=== PATIENT | female | born 1980 | race Caucasian/White ===

== ENCOUNTER 2019-10-06 14:40 | Observation (INO) ==
--- NOTE | 2019-10-05 16:45 | History & Physical Report ---
Date of Service October 05, 2019 Assessment & Plan (1) Abscess of bursa, right wrist: She has fairly severe swelling, pain, stiffness, and numbness in her volar forearm, wrist, and hand. The epicenter of this seems to be at the volar aspect of her wrist. I am very concerned that she has an abscess in the volar wrist compartment that is compressing the median nerve and causing her numbness and pain with passive extension. This has been progressively worsening over the past 2 months. She has not had any advanced imaging yet despite her worsening symptoms. I am concerned enough that I think we should go ahead and post her for surgical debridement of the likely abscess in her volar wrist. We will see if we can get a stat MRI done today for further evaluation and preoperative planning. Risks, benefits, and alternatives of surgery were explained in detail. The surgical procedure, as well as postoperative recovery and rehabilitation, was also explained in detail. Risks include bleeding; infection; damage to surrounding structures such as nerves, blood vessels, and tendons that run in the area; persistent pain, numbness, weakness, or stiffness; or need for further surgery. She understands all of this and wishes to proceed with surgery. Preoperative workup was completed today, and informed consent was obtained. Addendum: Unfortunately, the MRI was denied by her insurance company so far, and it will take 48 hours to approve. I again think that her presentation is conc erning enough that we should go ahead with surgical intervention despite the lack of advanced imaging. Present on Admission?: Yes History of Present Illness Chief Complaint: Right wrist pain and swelling Ms. Villa is a 39-year-old acdxu-tisu-fzhzzyzl female who is been having pain and swelling in her right volar wrist. This originally started in July 2019 when she slept wrong and developed pain at the base of her thumb. She had a steroid injection in July into what sounds like the thumb basal joint. She developed a lump in the volar aspect of her wrist after that injection. It has been progressively enlarging and been progressively more painful since July. It has now worsened to the point where she has a lot of stiffness in her hand. This stiffness started about last week. Over this past weekend, she also developed redness coming up the volar forearm. She has also noticed numbness in her fingers. She went to her primary care physician, who was concerned about cellulitis and started her on Keflex yesterday afternoon. She has not noticed significant change with this yet. She also notes that an MRI was ordered in the past, but this was denied by her insurance company. Physical Exam Physical Exam: General: The patient appears well developed and well nourished. Awake, alert, and oriented x 3. Appropriate mood and affect. Normal gait and station. Normal coordination and balance. Skin: The skin over the right volar wrist and forearm shows relatively mild erythema extending from the volar wrist mass proximally up the forearm. Inspection/Palpation: Visual inspection reveals significant swelling and tenderness to palpation over the distal aspect of the volar wrist. This is very full and feels like it could be consistent with an abscess measuring almost 5 cm in diameter. Range of Motion: There is very limited range of motion of the wrist and hand due to pain. She has significant pain with passive extension of her wrist and fingers. Stability: There is no gross ligamentous laxity. Strength: There is significant limitation in strength due to pain. Sensation: The patient reports significant numbness in the median nerve distribution. Vascular: Hand is warm and well perfused. Results & Data Diagnostic Findings New x-rays of the right wrist were obtained today. They are largely unremarkable. Soft tissue windowing shows a large amount of swelling on the volar side of the wrist, but no obvious discrete fluid collections. No osseous erosions to indicate a chronic osteomyelitis. No significant arthritis.
[~2019-10-06 14:40] MED LIST: CEFAZOLIN 2000MG 2,000 MG/15 ML SYR IV SCH; PATIENT'S ALLERGY INFO NEEDS ENTERED SCH; PATIENT'S HEIGHT AND/OR WEIGHT NEEDED SCH
[2019-10-06 16:00] LABS: Basophils # (auto) 0.01 K/uL (0-0.2); Basophils % (auto) 0.2 %; Eosinophils # (auto) 0.06 K/uL (0-0.5); Hematocrit (blood only) 39.7 % (37-47); Hemoglobin 13.1 g/dL (12.0-16.0); Immature Granulocytes # (auto) 0.01 K/uL (0.00-0.02); Immature Granulocytes % (auto) 0.2 %; Lymphocytes # (auto) 1.31 K/uL (1.2-3.4); Mean Corpuscular Hemoglobin 31.3 pg (25-34); Mean Platelet Volume 9.3 fL (7.4-10.4); Monocytes # (auto) 0.55 K/uL (0.11-0.59); Monocytes % (auto) 8.8 %; Neutrophils # (auto) 4.31 K/uL (1.4-6.5); Neutrophils % (auto) 68.8 %; Platelet Count 209 K/uL (130-400); RDW Coefficient of Variation 13.4 % (11.5-14.5); RDW Standard Deviation 46.8 fL (36.4-46.3); Red Blood Count 4.18 M/uL (4.2-5.4); White Blood Count 6.25 K/uL (4.8-10.8)
--- NOTE | 2019-10-06 16:38 | History & Physical Bridge Note ---
Date of Service October 06, 2019 History & Physical Bridge Note I have examined the patient, reviewed the History & Physical and in the interval since the performance of the History & Physical I have noted the following changes of clinical significance: no changes noted
[2019-10-06] MEDS ORDERED: BACITRACIN INJ 50,000 UNIT VIAL ONE (16:42)
--- NOTE | 2019-10-06 17:00 | Anesthesiology Consultation ---
Date of Service October 06, 2019 Assessment & Plan Chart Review Chart Review: Acceptable Risk for Surgery and Patient NOT seen in Pre Admission Testing Consults Requested none ASA ASA1 Proposed Anesthesia Anesthesia Type: General Risk / Benefits Reviewed With: PT / POA / Parent / Guardian, Accepts Plan and Informed Consent Obtained History Surgery Operation Date: 10/06/19 07:00 Proposed Procedures p Right Wrist Incision and Drainage - Bruce Ge M.D. Height/Weight Height: 5 ft 10 in Weight: 83.121 kg Allergies Allergy/AdvReac Type Severity Reaction Status Date / Time No Known Allergies Allergy Unverified 10/06/19 15:24 Medications Home Medications Medication Instructions Recorded Confirmed Last Taken bupropion HCl [Wellbutrin XL] 150 mg PO QAM 10/06/19 10/06/19 10/05/19 08:00 ergocalciferol (vitamin D2) 1,250 mcg PO WK 10/06/19 10/06/19 09/26/19 08:00 [Vitamin D2] folic acid mg PO DAILY 10/06/19 10/05/19 08:00 [id number]-bw-[id number]-Ca carb-vit K 1 tab PO DAILY 10/06/19 10/06/19 10/05/19 08:00 [Women's Multivitamin] NPO Date Last Intake of Fluids: 10/06/19 Time Last Intake of Fluids: 00:01 Date Last Intake of Solids: 10/05/19 Time Last Intake of Solids: 19:00 Exercise / Class Metabolic Activity II 4-5 Yardwork/Stairs/Walk up hill Past Anesthesia History No Hx of Anesthesia Complications and No Family Hx of Anesthesia Complications History of PONV No Hx of Motion Sickness and History of PONV Social History Smoking Status: Never smoker Hx Alcohol Use: No Hx Substance Use: No Physical Exam Vital Signs Last Vital Signs Temp 36.8 C 10/06/19 15:13 Pulse 72 10/06/19 15:13 Resp 16 10/06/19 15:13 BP 124/64 10/06/19 15:13 Pulse Ox 100 10/06/19 15:13 Constitutional not obese ENMT Mouth: no dentition abnormality Thyromental Distance: < 3.5 Finger Breadths Mallampati Class: II Neck normal visual inspection and trachea midline; neck extension not limited Respiratory normal respiratory effort Auscultation: lungs clear to auscultation bilaterally Cardiovascular Rate/Rhythm: regular rate and regular rhythm Heart Sounds: no murmur Musculoskeletal Spine: normal cervical ROM Extremities: extremities normal to inspection Neurologic moves all extremities Motor/Sensory: no sensory deficit Psychiatric Orientation: alert and oriented x 3 Testing Laboratory Results 10/06/19 15:51
[2019-10-06] MEDS ORDERED: CEFAZOLIN 2,000 MG/15 ML IV PUSH IV ONE (17:01)
[2019-10-06] MEDS ORDERED: SCOPOLAMINE 1.5 MG TDSY ONE (17:01)
[2019-10-06] MEDS ORDERED: SCOPOLAMINE 1.5 MG TDSY TD ONE (17:05)
[2019-10-06] MEDS ORDERED: MIDAZOLAM HCL 1 MG/ML 2ML VIAL ONE (17:09)
[2019-10-06] MEDS ORDERED: LIDOCAINE HCL 2% 2 ML VIAL/AMP(20MG/ML) INFIL ONE (17:09)
[2019-10-06] MEDS ORDERED: fentaNYL citrate 100 MCG/2 ML VIAL ONE ×3 (17:09→19:39)
[2019-10-06] MEDS ORDERED: ONDANSETRON INJ 2 MG/ML 2 ML VIAL ONE ×2 (17:09→19:31)
[2019-10-06] MEDS ORDERED: DEXAMETHASONE SOD INJ 4 MG/ML VIAL ONE (17:09)
[2019-10-06] MEDS ORDERED: PROPOFOL IV EMULSION 10 MG/ML 20 ML VIAL IV ONE (17:09)
[2019-10-06] MEDS ORDERED: LACTATED RINGER'S 1,000 ML IV SCH (17:15)
[2019-10-06 17:31] LABS: Appearance Urine Clear (Clear); Bilirubin Urine Negative (Negative); Blood Urine Negative (Negative); Color Urine Yellow; Glucose Urine UA Negative (Negative); Ketones Urine 1+ (Negative); Leukocyte Esterase Urine Negative (Negative); Nitrite Urine Negative (Negative); Protein Urine Negative (Negative); Urobilinogen Urine Negative (Negative); pH Urine 6.5 (4.5-7.5)
[2019-10-06] MEDS ORDERED: HYDROmorphone INJ 2 MG/ML SYR/VIAL ONE (17:55)
--- NOTE | 2019-10-06 19:29 | Post Operative Brief Note ---
Immediate Post Op Note v1 Date of Surgery October 06, 2019 Pre & Post Diagnosis Operation Date: 10/06/19 07:00 Pre-Op Diagnosis: Abscess of bursa, right wrist Post-Op Diagnosis: Right wrist flexor pollicis longus tenosynovitis, acute carpal tunnel syndrome I identified the patient and participated in the time-out.: Yes Procedure Operation Date: 10/06/19 07:00 Actual Procedures p Right Wrist Incision and Debridement, Flexor Pollicis Longus and Carpal Tunnel Release(Right) - Bruce Ge M.D. Surgeon Bruce Ge Liquid Waste Treatment Plant Operator None Estimated Blood Loss 15 Findings Consistent with Post-Op Diagnosis
[2019-10-06] MEDS ORDERED: FLUMAZENIL 0.1 MG/1 ML 10 ML VIAL IV PRN (19:31)
[2019-10-06] MEDS ORDERED: ATROPINE SULFATE 0.1 MG/ML 10ML SYR IV PRN (19:31)
[2019-10-06] MEDS ORDERED: ePHEDrine sulfate 50 MG/ML AMP IV PRN (19:31)
[2019-10-06] MEDS ORDERED: ONDANSETRON INJ 2 MG/ML 2 ML VIAL IV PRN ×2 (19:31→20:08)
[2019-10-06] MEDS ORDERED: KETOROLAC 30 MG/ML VIAL IV PRN (19:31)
[2019-10-06] MEDS ORDERED: PROMETHAZINE HCL 12.5 MG in SODIUM CHLORIDE 0.9% 50 ML IV PRN (19:31)
[2019-10-06] MEDS ORDERED: NALOXONE HCL 0.4 MG/1 ML VIAL/CARP IV PRN ×2 (19:31→20:08)
--- NOTE | 2019-10-06 19:32 | Operative Report ---
Post Operative Report Pre & Post Diagnosis Operation Date: 10/06/19 07:00 Pre-Op Diagnosis: Right wrist volar abscess, acute carpal tunnel syndrome Post-Op Diagnosis: Right wrist and thumb flexor pollicis longus infectious tenosynovitis, acute carpal tunnel syndrome I identified the patient and participated in the time-out.: Yes Procedure Operation Date: 10/06/19 07:00 Actual Procedures Irrigation and debridement of right wrist and thumb flexor pollicis longus infectious tenosynovitis (29632), open Carpal Tunnel Release (14289) - Bruce Ge M.D. Surgeon Bruce Ge Senior Ecologist None Estimated Blood Loss 15 Findings Consistent with Post-Op Diagnosis Specimens Culture swabs x 2, tissue for culture Drains None Anesthesia Type General Complications none Disposition Disposition: Recovery Room Indications Ms. Villa is a 39-year-old female who is been having progressively worsening pain and swelling in her right volar wrist after she got an injection in her sophia mb about 2 months ago. Unfortunately, her insurance company denied multiple requests for MRI for further evaluation, and she continued to worsen. History and clinical exam were consistent with the above diagnosis. Risks, benefits, and alternatives of surgery were explained in detail. The patient understood all this and wished to proceed. Description of Procedure Patient was identified in the preoperative holding area. Operative extremity was marked. Patient was then brought back to the operating room, and general anesthesia was induced without complication. Appropriate weight-based dose of Ancef was infused intravenously for antibiotic prophylaxis. Tourniquet was placed on the right upper arm. Arm was then prepped and draped in a standard sterile fashion using Chlorhexidine prep. The arm was then exsanguinated by elevation only, and the tourniquet was inflated. I planned for an extensile carpal tunnel release with the volar wrist incision. Again, the epicenter of the swelling appeared to be in the volar wrist just proximal to the wrist crease. I also planned for an open carpal tunnel release due to her acute carpal tunnel syndrome prior to surgery. I made the carpal tunnel incision and then carried this across the wrist crease in a Dara type fashion, and then extended along the course of the FCR tendon in the distal forearm. The superficial and deep portions of the FCR tendon sheath were opened longitudinally. I began encountering a lot of of reactive tissue and serous fluid. Parona space was entered, but no purulence was found there. I then got a sanchez of purulent fluid when I opened the flexor pollicis longus tendon sheath. There was abundant reactive synovial tissue around the FPL tendon. It was clearly the FPL tendon sheath that was the epicenter of infection, as there is a copious amount of pus within the tendon sheath. Culture swabs were obtained. I also sent a tissue specimen for culture that consisted of the reactive synovial tissue around the FPL. I then continued to carefully debride the chronic reactive synovial tissue off of the FPL proximally and distally. Since there was clearly pus within the FPL tendon sheath, I decided to open the FPL sheath distally over the A1 temitope. I performed this in a Dara type incision in case I had to extend this more distally. Ulnar and radial neurovascular bundles were identified and protected. I again encountered reactive inflammatory tissue directly over the FPL tendon sheath and A1 temitope. I then opened the A1 temitope longitudinally, and again got a sanchez of purulent fluid. The A2 temitope was carefully protected. I released the FPL tendon sheath as far proximal as I could reach underneath the thenar musculature. I then c opiously irrigated the wrist wound with sterile saline via gravity irrigation, as well as the FPL tendon sheath with a syringe and 14-gauge Angiocath. I was able to irrigate the FPL tendon sheath all the way distally to the tip of the thumb; I was able to easily palpate the irrigation fluid within the tip of the thumb and felt that I therefore did not need to open over the volar aspect of the IP joint. I was able to flush fluid through the FPL tendon sheath proximally into the wrist wound. At this point I then continued with the carpal tunnel release due to her preoperative acute carpal tunnel syndrome. The superficial palmar fascia and transverse carpal ligament were sharply divided directly over the carpal tunnel and median nerve. I continued the release of the fascia all the way through the volar wrist crease to the forearm wound. The palmar cutaneous branch was identified and protected. I then explored some of the other flexor tendons and remaining structures within the wrist to ensure that there is no other pockets of infection. The FDS and FDP tendons were opened; no further pus was found. The wounds were again copiously irrigated with sterile saline; a total of 6 L of saline were irrigated through the wounds. Tourniquet was let down and hemostasis was achieved with bipolar electrocautery. Subcutaneous tissue was closed with 3-0 Vicryl, and skin was closed with 4-0 Prolene. Sterile dressings were then applied with Xeroform, sterile gauze, sterile Webril, and Colby wrap. The drapes were removed, the patient was awakened from anesthesia, and taken to the Post Anesthesia Care Unit in stable condition. There were no immediate complications from the procedure. I was present and scrubbed for the entire procedure. I attest to the content of the Intraoperative Record and any orders documented therein. Any exceptions are noted below.
[2019-10-06] MEDS: fentaNYL citrate 100 MCG/2 ML VIAL IV PRN ×4 (19:40→19:55)
[2019-10-06] MEDS ORDERED: MAGNESIUM HYDROXIDE SUSP 30 ML UDC PO PRN (20:08)
[2019-10-06] MEDS ORDERED: bisacodyL 10 MG SUPP PR PRN (20:08)
[2019-10-06] MEDS ORDERED: METOCLOPRAMIDE HCL INJ 5 MG/ML 2 ML VIAL IV PRN (20:08)
[2019-10-06] MEDS ORDERED: OXYCODONE HCL IR 5 MG TAB (IMMEDIATE RELEASE) PO PRN (20:08)
[2019-10-06] MEDS ORDERED: SODIUM CHLORIDE 0.9% 1000ML 1,000 ML IV SCH (20:15)
[2019-10-06] MEDS ORDERED: MoRPHine SULFATE 4 MG/ML 1 ML CARP\\VIAL IV PRN (20:16)
--- NOTE | 2019-10-06 20:19 | Anesthesiology Progress Note ---
Date of Service October 06, 2019 Anesthesia Post Procedure Vital Signs Vital Signs: Temp Pulse Pulse Resp BP Pulse Ox 10/06/19 20:10 36.6 C 81 16 133/80 94 10/06/19 20:00 98 H 18 157/86 H 98 10/06/19 19:50 77 15 145/79 H 92 10/06/19 19:40 102 H 14 165/86 H 96 10/06/19 19:30 36.4 C L 110 H 14 155/92 H 97 10/06/19 15:13 36.8 C 72 16 124/64 100 Pain Intensity Right Wrist: Pain Intensity: 10 Transfer of Care Handoff Completed per policy Notes Mental Status: alert / awake / arousable Patient Amnestic to Procedure: Yes Nausea / Vomiting: adequately controlled Pain: adequately controlled Airway Patency, RR, SpO2: stable & adequate BP & HR: stable & adequate Hydration State: stable & adequate Anesthetic Complications: no major complications apparent
[2019-10-06] MEDS ORDERED: SENNA 8.6 MG TAB PO SCH (21:00)
[2019-10-06] MEDS: DOCUSATE SODIUM 100 MG CAP PO SCH (21:04)
[2019-10-06] MEDS: ACETAMINOPHEN 500 MG TAB PO SCH (22:45)
[2019-10-06] MEDS: CEFAZOLIN 2000MG 2,000 MG/15 ML SYR IV SCH (23:34)
[2019-10-06] MEDS: IBUPROFEN 600 MG TAB PO SCH (23:34)
[2019-10-06] MEDS: CHECK SCOPOLAMINE PATCH PLACEMENT SCH (23:34)
[2019-10-07] MEDS: ACETAMINOPHEN 500 MG TAB PO SCH ×2 (03:51→10:07)
[2019-10-07] MEDS: IBUPROFEN 600 MG TAB PO SCH ×2 (05:50→11:44)
[2019-10-07] MEDS: CEFAZOLIN 2000MG 2,000 MG/15 ML SYR IV SCH (07:58)
[2019-10-07] MEDS: CHECK SCOPOLAMINE PATCH PLACEMENT SCH (07:58)
[2019-10-07] MEDS: DOCUSATE SODIUM 100 MG CAP PO SCH (07:58)
--- NOTE | 2019-10-07 08:25 | Anesthesiology Progress Note ---
Date of Service October 07, 2019 Anesthesia Post Procedure Vital Signs Vital Signs: Temp Pulse Pulse Resp BP Pulse Ox 10/07/19 07:50 36.8 C 55 L 18 120/66 100 10/07/19 03:47 36.6 C 60 16 115/67 100 10/06/19 23:35 36.6 C 59 L 16 120/71 100 10/06/19 22:35 36.4 C L 70 18 117/74 99 10/06/19 21:35 36.6 C 70 18 115/72 99 10/06/19 21:05 36.5 C 70 16 131/81 99 10/06/19 20:35 36.9 C 90 16 150/85 H 99 10/06/19 20:25 73 16 140/79 100 10/06/19 20:10 36.6 C 81 16 133/80 94 10/06/19 20:00 98 H 18 157/86 H 98 10/06/19 19:50 77 15 145/79 H 92 10/06/19 19:40 102 H 14 165/86 H 96 10/06/19 19:30 36.4 C L 110 H 14 155/92 H 97 10/06/19 15:13 36.8 C 72 16 124/64 100 Pain Intensity Right Wrist: Pain Intensity: 10 Notes Mental Status: alert / awake / arousable and participated in evaluation Patient Amnestic to Procedure: Yes Nausea / Vomiting: adequately controlled Pain: adequately controlled Airway Patency, RR, SpO2: stable & adequate BP & HR: stable & adequate Hydration State: stable & adequate Anesthetic Complications: no major complications apparent and Pt Satisfied with anesthetic care
--- NOTE | 2019-10-07 12:40 | Orthopedic Progress Note ---
Date of Service October 07, 2019 Assessment & Plan (1) Abscess of bursa, right wrist: POD 1 Pain controlled today. Nausea resolved. Progressing well. Discussed case with Dr Ge. Plan for dc to home. Subjective POD 1 s/p right wrist I/D Pt sitting up in bed. Pleasant. Pain controlled. No nausea. Hoping to go home. No new complaints. Physical Exam Physical Exam: Dressings/splint C/D/I. Cap refll < 2 seconds. Moving fingers well. No overt pain with ROM. Results & Data Vital Signs (Past 12 Hours) Vital Signs Temp Pulse Resp BP Pulse Ox 10/07/19 07:50 36.8 C 55 L 18 120/66 100 10/07/19 03:47 36.6 C 60 16 115/67 100
--- NOTE | 2019-10-10 17:00 | Discharge Summary ---
Date of Service October 10, 2019 Admission HPI Per Admitting Provider Ms. Villa is a 39-year-old wgjne-kpnh-cgnmikik female who is been having pain and swelling in her right volar wrist. This originally started in July 2019 when she slept wrong and developed pain at the base of her thumb. She had a steroid injection in July into what sounds like the thumb basal joint. She developed a lump in the volar aspect of her wrist after that injection. It has been progressively enlarging and been progressively more painful since July. It has now worsened to the point where she has a lot of stiffness in her hand. This stiffness started about last week. Over this past weekend, she also developed redness coming up the volar forearm. She has also noticed numbness in her fingers. She went to her primary care physician, who was concerned about cellulitis and started her on Keflex yesterday afternoon. She has not noticed significant change with this yet. She also notes that an MRI was ordered in the past, but this was denied by her insurance company. Principal Diagnosis Right wrist and thumb flexor pollicis longus infectious tenosynovitis, acute carpal tunnel syndrome Discharge Data Allergies Allergy/AdvReac Type Severity Reaction Status Date / Time No Known Allergies Allergy Unverified 10/06/19 15:24 Consultations 10/06/19 20:10 Consult Case Management - Discharge Planning Routine Procedures Performed Operation Date: 10/06/19 07:00 Actual Procedures p Right Wrist Incision and Debridement, Flexor Pollicis Longus and (Right) - Bruce Ge M.D. s Carpal Tunnel Release(Right) - Bruce Ge M.D. Hospital Course (1) Abscess of bursa, right wrist: Ms. Villa is a 39-year-old female who had 2 months of worsening right volar wrist pain and thumb pain after a previous steroid injection in her primary care provider's office. Clinical exam in my clinic was consistent with infection and abscess, but unfortunately a preoperative MRI for localization was denied by her insurance. She was taken to the operating room on October 06 for irrigation and debridement surgery, and was found to have pus within the FPL tendon sheath. In the recovery room after surgery, she had significant pain, nausea, and vomiting, and did not feel comfortable going home that evening. She was admitted overnight for observation. The following morning, her pain and nausea was much better controlled, and she was therefore discharged home. Total Time Total Time Spent Total Time Spent (In Minutes): 10 Discharge Plan Discharge Items Patient Disposition: Home - Self-Care Reason For Visit: Right Wrist Abscess Discharge Diagnosis: Right wrist and thumb FPL infectious flexor tenosynovitis, acute carpal tunnel syndrome Activity: Per Instructions section Non-emergency contact: Surgeon Call non-emergency contact if: your pain is not controlled, your temperature is above 101.5, your wound has increased redness and your wound has increased drainage Follow-up/Referrals: Bruce Ge M.D. [Physician] - Bin Cortez PA-C [Primary Care Provider] - Addtl Attending Provider Instructions: RESUME YOUR KEFLEX THAT YOU HAVE AT HOME STARTING TONIGHT. Things to Watch Out For -Nausea and sometimes vomiting is common side effect of anesthesia. Go easy with eating for the first day after your surgery. Drink non-carbonated fluids like Gatorade or water. Eat bland foods such as crackers. If these things go down easily, you may progress to more normal foods. -Go to the Emergency Room if you have sudden onset of chest pain, shortness of breath, or uncontrollable pain. -Call the clinic immediately if you have a sudden increase in the amount of wound drainage or the drainage becomes thick, yellow or green, or foul-smelling. -For routine questions, call the clinic at [phone] during regular business hours (8am-5pm). For urgent issues after regular business hours, you may call the clinic to be connected to the on-call physician. Dressings -Keep your dressings clean, dry, and in place for 4 days. After 4 days, you may remove the dressing and cover the incision with a new clean dressing. Be sure to wash your hands thoroughly before touching your incisions. Apply a new dressing daily thereafter. -You may begin showering after your first dressing change (4 days after surgery). You may let the water run BRIEFLY over the incision, but do not soak the incision in the bathtub or pool for 2 weeks. You may also gently clean the incision with mild soap and water; pat the incision dry after cleaning-do not rub the incision. -You may use an antibiotic ointment (Bacitracin, Polysporin) if desired, but this is not necessary. Sling/Activity -Keep your hand elevated and move your fingers frequently to reduce swelling. -You may wear a sling if needed for comfort, but come out of the sling 4-5 times a day for active range of motion exercises for your shoulder and elbow. Pain Medicines -You have been prescribed an anti-inflammatory (Motrin/ibuprofen) and a non- narcotic pain medicine (Tylenol/acetaminophen). These are your primary pain medications. Take them each every 6 hours as instructed. It is recommended that you stagger these medicines every 3 hours (i.e. take ibuprofen at 8:00 am, then acetaminophen at 11:00 am, then ibuprofen at 2:00 pm, etc). -DO NOT take any additional anti-inflammatories (Advil, Aleve/naproxen, Mobic/meloxicam, Celebrex) or any additional Tylenol/acetaminophen products with these prescribed medications. -You have also been prescribed an additional narcotic pain medication (oxycodone/tramadol). Take this medicine ONLY for breakthrough pain not controlled by the ibuprofen and acetaminophen. -Do not drive or operate heavy machinery while taking the narcotic medication. -Common side effects of narcotic pain medicines include itching, nausea, constipation, and feeling ``loopy. However, if you develop a rash or hives, stop taking the medicine and call the clinic. If you develop swelling in your throat or difficulty breathing, go to the Emergency Room or call 911 IMMEDIATELY. -You may take over the counter stool softeners if needed for constipation. Pending Studies at Discharge: No Stand-Alone Forms: My [facility] [address] Medications and DC Order Prescriptions: Continued bupropion HCl [Wellbutrin XL] 150 mg Tablet Extended Release 24 Hr 150 mg PO QAM RF: 0 folic acid 800 mcg Tablet PO DAILY RF: 0 Women's Multivitamin 18 mg iron-400 mcg-500 mg Tablet 1 tab PO DAILY RF: 0 ergocalciferol (vitamin D2) [Vitamin D2] 1,250 mcg (50,000 unit) Capsule 1,250 mcg PO WK RF: 0 Discharge Orders: Discharge Order (Routine); Ordered 10/06/19 Ordered By: Bruce Ge Admission Data Admit Date/Time: 10/06/19 20:08 Attending Provider: Bruce Ge Admit Provider: Bruce Ge Primary Care Provider: Bin Cortez Other Interventions: Discharge Summary Assessment (RN) Last Done: 10/07/19 13:13 DC Date/Time DO NOT enter until pt leaves facility: 10/07/19 13:35
== END 2019-10-07 13:35 | disposition home or self-care (01) ==
LOC: 3N 14:40 → ASU 14:40